=== PATIENT | male | born 1945 | race Caucasian/White ===

== ENCOUNTER → 2022-02-24 | Outpatient (CLI) | payer MEDICARE | END | disposition home or self-care (01) | LOC: SHCH 09:02 | PROVIDERS: ATTEND Internal Medicine Cardiovascular Disease | DX: I65.23 Occlusion and stenosis of bilateral carotid arteries (principal) | CPT/HCPCS: 93880 ==

== ENCOUNTER → 2022-03-06 | Outpatient (CLI) | payer MEDICARE ==
[~2022-03-06] MED LIST: REGADENOSON 0.4 MG/5 ML PF SYG IVP SCH
== END | disposition home or self-care (01) ==
LOC: SHCH 08:56
PROVIDERS: ATTEND Internal Medicine Cardiovascular Disease
DX: Z01.810 Encounter for preprocedural cardiovascular examination (principal); R91.8 Other nonspecific abnormal finding of lung field; I11.9 Hypertensive heart disease without heart failure; I48.20 Chronic atrial fibrillation, unspecified; E78.5 Hyperlipidemia, unspecified; I35.0 Nonrheumatic aortic (valve) stenosis; Z79.01 Long term (current) use of anticoagulants; Z79.899 Other long term (current) drug therapy
CPT/HCPCS: 78452; 96374; 93017; J2785; A9500 ×2

== ENCOUNTER → 2022-08-24 | Outpatient (CLI) | payer MEDICARE | END | disposition home or self-care (01) | LOC: LAB 13:36 | PROVIDERS: ATTEND Internal Medicine Cardiovascular Disease | DX: I35.0 Nonrheumatic aortic (valve) stenosis (principal); I10 Essential (primary) hypertension | CPT/HCPCS: 36415; 83880 ==

== ENCOUNTER 2022-09-28 08:54 | Observation (INO) | payer MEDICARE ==
[2022-09-24 14:56] LABS: BASOPHILS # (AUTO) 0.04 K/uL (0.00-0.20); BASOPHILS % (AUTO) 0.7 % (0.0-5.0); EOSINOPHILS # (AUTO) 0.42 K/uL (0.00-0.70); EOSINOPHILS % (AUTO) 6.8 % (0.0-8.0); IMMATURE GRANULOCYTE ABSOLUTE 0.02 K/uL (0-1); LYMPHOCYTES # (AUTO) 1.8 K/uL (1.0-4.8); MEAN CORPUSCULAR HEMOGLOBIN 30.1 pg (27.0-33.0); MEAN CORPUSCULAR HGB CONC 33.1 g/dL (32.0-36.0); MEAN CORPUSCULAR VOLUME 91.1 fL (79-99); MONOCYTES # (AUTO) 0.7 K/uL (0.1-1.0); MONOCYTES % (AUTO) 11.4 % (3.0-13.0); NEUTROPHILS # (AUTO) 3.1 K/uL (1.8-7.7); NEUTROPHILS % (AUTO) 50.8 % (40.0-77.0); PLATELET COUNT (AUTO) 259 K/uL (130-400); RED BLOOD CELL COUNT(AUTO) 4.28 MIL/uL (4.50-6.20); RED CELL DISTRIBUTION WIDTH 14.9 % (11.0-15.5); WHITE BLOOD COUNT (AUTO) 6.1 K/uL (4.8-10.8)
[2022-09-24 14:58] LABS: APPEARANCE,URINE CLEAR (CLEAR); BILIRUBIN,URINE NEGATIVE (NEGATIVE); COLOR,URINE YELLOW (YELLOW); GLUCOSE, URINE (UA) NEGATIVE (NEGATIVE); KETONES,URINE NEGATIVE (NEGATIVE); LEUKOCYTE ESTERASE ,URINE 250 Leu/uL (NEGATIVE); NITRATE,URINE NEGATIVE (NEGATIVE); PROTEIN,URINE NEGATIVE (NEGATIVE); UROBILINOGEN,URINE 0.2 mg/dL (0.2-1.0)
[2022-09-24 15:06] LABS: ADD UA MICROSCOPIC YES
[2022-09-24 15:12] LABS: INR 1.25 (0.85-1.15); PROTHROMBIN TIME 14.3 SEC (9.6-11.6)
[2022-09-24 15:13] LABS: B-TYPE NATRIURETIC PEPTIDE 480 pg/mL (0-100); PARTIAL THROMBOPLASTIN TIME 38.8 SEC (26.3-35.5)
[2022-09-24 15:19] LABS: CREATININE 1.1 mg/dL (0.5-1.5); POTASSIUM 4.3 mmol/L (3.5-5.1)
[2022-09-25 16:38] VITALS: BP 138/61; PULSE 71; RESP 20
[2022-09-28] VITALS (11 sets, daily range): BP systolic 114–147; BP diastolic 52–78; PULSE 45–69; RESP 12–18; O2SAT 98
[~2022-09-28] VITALS: Ht 182.9 cm; Wt 98.4 kg
[~2022-09-28 08:54] MED LIST changes: +FURO40TA5 PO; +IOPAMIDOL-370 100 ML VIAL IV ONE; +ISOS30TA92 PO; +LISI5TAB21 PO; +METO-408 PO; +MULT-1367 PO; +OMEG-125 PO; +RANO500T6 PO; -REGADENOSON 0.4 MG/5 ML PF SYG IVP SCH; +RIVA20TA PO; +SIMV40TA59 PO; +VITA-395 PO
[2022-09-28] MEDS ORDERED: 0.9%NACL 1000ML 1,000 ML IV ONE (09:18)
[2022-09-28] MEDS ORDERED: SODIUM BICARB 50MEQ 50ML VIAL 50 ML ONE (12:51)
[2022-09-28] MEDS ORDERED: MIDAZOLAM HCL 1 MG/ML 2ML VIAL ONE ×2 (12:51→14:12)
[2022-09-28] MEDS ORDERED: NITROGLYCERIN 50MG VIAL ONE (12:51)
[2022-09-28] MEDS ORDERED: HEPARIN 10,000 UNIT/10ML (1,000 UNIT/ML) VIAL ONE (12:51)
[2022-09-28] MEDS ORDERED: LIDOCAINE HCL 400MG/20ML VIAL ONE (12:51)
[2022-09-28] MEDS ORDERED: MEPERIDINE-PF 25 MG/ML SYG ONE ×2 (12:52→14:12)
[2022-09-28] MEDS ORDERED: IOHEXOL-350 50ML VIAL IV ONE (13:36)
[2022-09-28] MEDS ORDERED: ONDANSETRON 4MG INJ IVP PRN (15:30)
[2022-09-28] MEDS ORDERED: 0.9%NACL 1000ML 1,000 ML IV SCH (15:30)
[2022-09-28] MEDS ORDERED: FAMOTIDINE 20MG TAB PO STA (16:15)
[2022-09-28] MEDS ORDERED: MAG/ALUM/SIMETH 30 ML UDCUP PO ONE (16:30)
[2022-09-28] MEDS ORDERED: PHARMACY COMMUNICATION MISC SCH (16:30)
[2022-09-28] MEDS ORDERED: ACETAMINOPHEN 325 MG TAB PO PRN (20:30)
[2022-09-28] MEDS ORDERED: NON-FORMULARY MEDICATION 1 EACH (Simvastatin (Zocor) 40 MG) PO SCH (21:00)
[2022-09-28] MEDS ORDERED: RIVAROXABAN 20 MG TABLET PO SCH (21:00)
[2022-09-28] MEDS ORDERED: LISINOPRIL 5 MG TABLET PO SCH (21:00)
[2022-09-28] MEDS ORDERED: SIMVASTATIN 20 MG TABLET PO SCH (21:00)
[2022-09-28] MEDS: RANOLAZINE 500 MG TAB.SR.12H PO SCH (21:15)
[2022-09-28] MEDS: FUROSEMIDE 40 MG TABLET PO SCH (21:16)
[2022-09-29 03:47] LABS: HEMATOCRIT 37.3 % (42-54); MEAN CORPUSCULAR HEMOGLOBIN 30.4 pg (27.0-33.0); MEAN CORPUSCULAR HGB CONC 33.2 g/dL (32.0-36.0); MEAN CORPUSCULAR VOLUME 91.4 fL (79-99); RED BLOOD CELL COUNT(AUTO) 4.08 MIL/uL (4.50-6.20); RED CELL DISTRIBUTION WIDTH 14.9 % (11.0-15.5); WHITE BLOOD COUNT (AUTO) 5.9 K/uL (4.8-10.8)
[2022-09-29 03:57] LABS: MAGNESIUM 1.8 mg/dL (1.80-2.40); POTASSIUM 4.3 mmol/L (3.5-5.1)
[2022-09-29 04:03] VITALS: BP 116/54; PULSE 75; RESP 18
[2022-09-29 06:53] VITALS: BP 129/63; PULSE 63; RESP 18
[2022-09-29] MEDS ORDERED: CLOP-31 PO (07:38)
[2022-09-29] MEDS ORDERED: ASPI-1005 PO (07:38)
[2022-09-29] MEDS: RANOLAZINE 500 MG TAB.SR.12H PO SCH (08:44)
[2022-09-29] MEDS: FUROSEMIDE 40 MG TABLET PO SCH (08:45)
[2022-09-29] MEDS ORDERED: ASPIRIN 81MG CHEW TAB PO SCH (09:00)
[2022-09-29] MEDS ORDERED: DHA PO SCH (09:00)
[2022-09-29] MEDS ORDERED: ISOSORBIDE MONO 30MG SR TAB PO SCH (09:00)
[2022-09-29] MEDS ORDERED: MULTIVITAMIN TABLET PO SCH (09:00)
[2022-09-29] MEDS ORDERED: OMEGA PO SCH (09:00)
[2022-09-29] MEDS ORDERED: METOPROLOL SUCCINATE 25 MG TAB.SR.24H PO SCH (09:00)
[2022-09-29] MEDS ORDERED: CLOPIDOGREL 75MG TAB PO SCH (09:00)
[2022-09-29] MEDS ORDERED: FISH OIL PO SCH (09:00)
[2022-09-29] MEDS ORDERED: VITAMIN E 400 UNIT CAPSULE PO SCH (09:00)
[2022-09-29] MEDS ORDERED: EPA PO SCH (09:00)
[2022-09-29] MEDS ORDERED: NON-FORMULARY MEDICATION 1 EACH (Multivitamin 1 EACH) PO SCH (09:00)
== END 2022-09-29 08:50 | disposition home or self-care (01) ==
LOC: DAH 08:54 → DAHIP 08:55 → 2AH 16:32
PROVIDERS: ADMIT Internal Medicine; ATTEND Internal Medicine
DX: I25.10 Atherosclerotic heart disease of native coronary artery without angina pectoris (principal); I35.0 Nonrheumatic aortic (valve) stenosis; I42.9 Cardiomyopathy, unspecified; E78.5 Hyperlipidemia, unspecified; I48.20 Chronic atrial fibrillation, unspecified; I11.0 Hypertensive heart disease with heart failure; I50.9 Heart failure, unspecified; I27.20 Pulmonary hypertension, unspecified; Q25.0 Patent ductus arteriosus; Z79.02 Long term (current) use of antithrombotics/antiplatelets; Z95.1 Presence of aortocoronary bypass graft; Z79.899 Other long term (current) drug therapy
CPT/HCPCS: 80048 ×2; 83880; 85025; 85610; 85730; 87088; 81001; 36415 ×2; 71045; 93005; 93461; 85347; 83735; 80061; 85027; C1769 ×3; C1887 ×2; C1894 ×2; C1725 ×5; C1874 ×2; C1760; C1893; G0378 ×18; Q9967 ×2; J3490 ×3; J7030; J1644 ×2; J2250 ×2; J2175 ×2; A4215; A4223 ×3; A4222; A4221; A4663; A4216; A4606; C9607; 99156; 99157